=== PATIENT | female | born 1950 | race Caucasian/White ===

== ENCOUNTER → 2016-09-30 | Outpatient (CLI) | payer OTHER ==
[~2016-09-30] MED LIST: ADDERALL 10 MG10 MG PO; B-100 COMPLEX100 MG PO; CALCIUM 600 +1 EAC1 PO; FISH OIL 1,0001 EAC5 PO; FORTEO750 MCG/3 SUBQ; FOSAMAX 70 MG T70 MG PO; GLUCOSAMINE &1 EAC1 PO; GREEN TEA1 EACH PO; HERCEPTIN KIT440 M1 IV; IRON325 PO; LUTEIN40 MG PO; MULTIVITAMINS PO; NOLVADEX 10MG T10 M1 PO; VITAMIN D400 UNI4 PO; VITAMINC500 PO
== END ==
LOC: MRI 10:09
DX: M23.000 Cystic meniscus, unspecified lateral meniscus, right knee (principal)

== ENCOUNTER → 2016-11-05 | Outpatient (CLI) | payer OTHER | LOC: ULTRA 12:36 | DX: I73.9 Peripheral vascular disease, unspecified (principal); M79.604 Pain in right leg; M79.605 Pain in left leg ==